=== PATIENT | female | born 1960 | race Asian ===

== ENCOUNTER 2020-01-18 19:26 | Emergency (ER) | payer MEDICAID ==
[~2020-01-18] VITALS: Ht 149.9 cm; Wt 60.0 kg
[~2020-01-18 19:26] MED LIST: AMIT10TA6 PO; ATOR40TA7 PO; CALC-159 PO; CETI-90 PO; FLUO20CA39 PO; GABA300C PO; GLYB2.5T2 PO; HYDR12.5 PO; LEVO100T PO; LORA10TA65 PO; LOSA50TA3 PO; METF-436 PO
--- NOTE | 2020-01-18 19:48 | NUR ---
PATIENT COMPLAINS OF HEADACHE, FEVER, AND CHILLS SINCE LAST WEDNESDAY. NO RECENT EXPOSURE. SLIGHT SUBJECTIVE SOB WITHOUT ACCESSARY MUSCLE USE. NO SORE THROAT, NO N/V. SEEN BY MD [facility].
--- NOTE | 2020-01-18 20:12 | NUR ---
PORTABLE CXR DONE. PATIENT MOVED TO [facility] TENT.
--- NOTE | 2020-01-18 20:30 | NUR ---
PATIENT RE-EVALUATED BY MD. DISCH TO HOME. SALINE LOCK (FIELD START DC'D, CATH INTACT.)
[2020-01-18 20:32] VITALS: BP 122/78
== END 2020-01-18 20:37 | disposition home or self-care (01) ==
LOC: ER 19:27
DX: R50.9 Fever, unspecified (principal); R51 Headache; E78.00 Pure hypercholesterolemia, unspecified; I10 Essential (primary) hypertension; Z90.710 Acquired absence of both cervix and uterus; Z56.0 Unemployment, unspecified; Z79.899 Other long term (current) drug therapy
CPT/HCPCS: 71045; 99283

== ENCOUNTER 2022-02-01 09:11 | Emergency (ER) | payer MEDICAID ==
[~2022-02-01] VITALS: Ht 149.9 cm; Wt 58.6 kg
[2022-02-01 10:31] LABS: CLARITY,URINE CLEAR (Clear); COLOR,URINE YELLOW (Yellow); GLUCOSE, URINE >=1000 mg/dl (Neg); KETONES,URINE TRACE mg/dl (Neg); LEUKOCYTE ESTERASE ,URINE NEGATIVE (Neg); NITRITES, URINE NEGATIVE (Neg); OCCULT BLOOD,URINE TRACE-INTACT (Neg); PROTEIN,URINE 30 mg/dl (Neg); UROBILINOGEN,URINE 0.2 E.U/dL (0.2-1.0)
[2022-02-01 10:32] LABS: UA COLLECTION TYPE CLN CATCH MIDSTREAM
[2022-02-01 10:42] LABS: BACTERIA,URINE FEW /HPF (Neg); MUCUS STRANDS FEW /LPF (Neg); RBC,URINE 0-2 /HPF (0-2); SQUAMOUS EPITHELIAL CELL,UR FEW /LPF (FEW)
[2022-02-01 10:43] LABS: WBC CLUMPS,URINE FEW /HPF (NEGATIVE)
[2022-02-01 10:50] LABS: BASOPHILS % (AUTO) 0.3 % (0-1); EOSINOPHILS % (AUTO) 0.3 % (0-6); HEMATOCRIT 41.5 % (35.0-45.0); HEMOGLOBIN 14.6 g/dl (12.0-16.0); LYMPHOCYTES # (AUTO) 1.1 X10'3 (1.1-4.8); LYMPHOCYTES % (AUTO) 12.9 % (21-51); MEAN CORPUSCULAR HEMOGLOBIN 30.5 PG (27.0-31.0); MEAN CORPUSCULAR HGB CONC 35.2 g/dL (33.0-36.5); MEAN CORPUSCULAR VOLUME 86.6 FL (78-98); MEAN PLATELET VOLUME 8.9 FL (7.4-10.4); MONOCYTES # (AUTO) 0.2 X10'3 (0-0.9); MONOCYTES % (AUTO) 2.6 % (2-12); NEUTROPHILS # (AUTO) 7.2 X10'3 (1.8-7.7); NEUTROPHILS % (AUTO) 83.9 % (42-75); PLATELET COUNT 181 X10'3 (140-440); RED BLOOD COUNT 4.79 X10'6 (4.20-5.60); RED CELL DISTRIBUTION WIDTH 12.4 % (11.5-14.5); WHITE BLOOD COUNT 8.6 X10'3 (4.5-11.0)
[2022-02-01] MEDS ORDERED: mag hydrox/Alum hydrox/simeth 30ml oral suspension PO ONE (10:50)
[2022-02-01] MEDS ORDERED: LIDOcaine Viscous 15ml cup MM ONE (10:50)
[2022-02-01] MEDS ORDERED: pantoprazole 40 MG vial IV SCH (10:50)
[2022-02-01] MEDS ORDERED: ondansetron/PF 4mg/2ml inj IV ONE (10:50)
[2022-02-01] MEDS ORDERED: normal saline 1000ML IV soln IVB ONE (10:50)
[2022-02-01] MEDS ORDERED: pantoprazole 40MG/NS 100ML BAG 100 ML IV ONE (10:55)
[2022-02-01 11:05] LABS: ALANINE AMINOTRANSFERASE 30 U/L (12-78); ALBUMIN/GLOBULIN RATIO 0.9 (1.1-1.5); ALKALINE PHOSPHATASE 78 IU/L (46-116); ANION GAP 11 (8-16); ASPARTATE AMINO TRANSFERASE 24 U/L (10-37); BILIRUBIN,TOTAL 0.7 MG/DL (0.1-1.0); BLOOD UREA NITROGEN 17 MG/DL (7-18); BUN/CREATININE RATIO 15.9 (6.6-38.0); CALCIUM 9.7 MG/DL (8.5-10.1); CHLORIDE 98 MMOL/L (99-107); CREATININE 1.07 MG/DL (0.40-0.90); GLUCOSE 249 MG/DL (70-104); LIPASE 179 U/L (73-393); POTASSIUM 4.4 MMOL/L (3.5-5.1); SODIUM 135 MMOL/L (135-145); TOTAL CARBON DIOXIDE 25.9 MMOL/L (24-32); TOTAL PROTEIN 8.4 G/DL (6.4-8.2); eGFR 52 ML/MIN
[2022-02-01] MEDS ORDERED: ONDA8TAB13 PO (11:56)
[2022-02-01] MEDS ORDERED: PANT-47 PO (11:56)
[2022-02-01 16:12] VITALS: BP 148/81
== END 2022-02-01 16:15 | disposition home or self-care (01) ==
LOC: ER 09:11
DX: R10.13 Epigastric pain (principal); R11.2 Nausea with vomiting, unspecified; E78.00 Pure hypercholesterolemia, unspecified; K21.9 Gastro-esophageal reflux disease without esophagitis; E11.9 Type 2 diabetes mellitus without complications; E06.9 Thyroiditis, unspecified; Z79.899 Other long term (current) drug therapy
CPT/HCPCS: 36415; 71045; 80053; 81001; 83690; 85025; 87088; 93005; 96374; 96375; 99285; C9113; J2405; J7030; 96361

== ENCOUNTER 2022-08-11 09:52 | Emergency (ER) | payer MEDICAID ==
[~2022-08-11] VITALS: Ht 149.9 cm; Wt 60.5 kg
[~2022-08-11 09:52] MED LIST changes: +ONDA8TAB13 PO; +PANT-47 PO
[2022-08-11 09:58] VITALS: BP 116/75
== END 2022-08-11 14:23 | disposition left against medical advice (07) ==
LOC: VAS 09:53
DX: R20.0 Anesthesia of skin (principal); Z53.21 Procedure and treatment not carried out due to patient leaving prior to being seen by health care provider

== ENCOUNTER 2025-07-01 21:31 | Emergency (ER) | payer MEDICAID ==
[~2025-07-01] VITALS: Ht 149.9 cm; Wt 60.1 kg
[~2025-07-01 21:31] MED LIST changes: +ATOR-411 PO; -ATOR40TA7 PO; -FLUO20CA39 PO; +FLUO20CA41 PO; +LOSA-416 PO; -LOSA50TA3 PO; +ONDA-245 PO; -ONDA8TAB13 PO
--- NOTE | 2025-07-01 21:49 | ELECTROCARDIOGRAPH REPORT ---
[facility] Test Date: 2025-07-01 Test Time: 21:48:10 Pat Name: CAROLINA PICKETT Department: EMERGENCY ROOM Room: Gender: F [employer]: KISHA : 1960 Requested By: SHAKIRA CRUZ Order Number: [id number] Reading MD: Measurements Intervals [place] Rate: 64 P: 22 WY: 159 QRS: 29 QRSD: 86 T: 58 QT: 415 QTc: 428 Interpretive Statements Sinus rhythm Low voltage, precordial leads ST elevation, consider inferior injury Please click the below link to view image of tracing.
[2025-07-01 22:09] LABS: MEAN PLATELET VOLUME 9.4 FL (7.4-10.4); RED CELL DISTRIBUTION WIDTH 12.9 % (11.5-14.5)
--- NOTE | 2025-07-01 22:26 | RADIOLOGY REPORT ---
CHEST RADIOGRAPH Indication: CP Technique: Single frontal view of the chest was obtained COMPARISON: CHEST,SINGLE VIEW on DOS: 02/01/22 FINDINGS: Lungs and pleural spaces are clear. Cardiac silhouette and trey are within normal limits. Bones and soft tissues demonstrate no significant abnormality. IMPRESSION: 1. No acute disease.
[2025-07-01 22:30] LABS: CREATININE 1.43 MG/DL (0.40-0.90); PRO BRAIN NATRIURETIC PEPTIDE < 30 PG/ML (0-125); TOTAL CARBON DIOXIDE 27.2 MMOL/L (24-32); eCRCL 27 ML/MIN; eGFR 37 ML/MIN
--- NOTE | 2025-07-02 01:21 | Physician Documentation ---
History of Present Illness General Chief Complaint: Chest Pain Stated Complaint: THROAT/BACK PAIN Time Seen by MD: 01:02 Primary Medical Doctor: [facility] History of Present Illness Initial Comments The patient is a 65-year-old female with a history of type 2 diabetes who complains of anterior chest pain over the last six days. Patient states pain is worse at night. It got she also states it is worse when she moves and if she touches her anterior chest. Patient is a states she saw her provider during the week who did an EKG on her. Patient states her pain is currently 8/10. She states it radiates into her throat.. The patient states she has a does have a history of cardiac issues in the past. Patient denies any fevers chills nausea or vomiting. Patient denies any pain when she swallows. Medication Reconciliation Allergies: Coded Allergies: No Known Allergies (Unverified , 06/27/11) Scheduled Amitriptyline Hcl (Amitriptyline Hcl), 1 TAB PO HS, (Reported) Atorvastatin Calcium (Lipitor), 1 TABLET PO HS, (Reported) Calcium Carbonate/Vitamin D3 (Calcium + Vitamin D Tablet), 1 TAB PO DAILY, (Reported) Cetirizine HCl (Zyrtec), 1 TABLET PO DAILY, (Reported) Fluoxetine Hcl* (Prozac*), 1 CAP PO QAM, (Reported) Gabapentin (Neurontin), 1 CAP PO TID, (Reported) Glyburide (Diabeta), 2.5 MG PO DAILY, (Reported) Hydrochlorothiazide (Hydrochlorothiazide), 1 CAP PO DAILY, (Reported) Levothyroxine Sodium (Synthroid), 1 TAB PO DAILY, (Reported) Loratadine (Claritin), 1 TABLET PO DAILY, (Reported) Losartan* (Cozaar*), 1 TAB PO DAILY, (Reported) Metformin Hcl (Metformin Hcl), 1 TAB PO Q12H, (Reported) Pantoprazole Sodium (PROTONIX tablet), 1 TAB PO DAILY Scheduled PRN Ondansetron 8mg ODT (Ondansetron Odt), 1 TAB PO TID PRN for nausea/vomiting Sucralfate (Sucralfate), 1 GM PO TID PRN for pain Past Medical History Past Medical History: High Cholesterol, Hypertension, GERD, Diabetes, Hypothyroidism Past Surgical History: hysterectomy Smoking: Non-Smoker Alcohol Use: None Drug Use: none Lives with: Family Lives In: Home Occupation: unemployed Review of Systems All Other Systems at this time: Reviewed and Negative Physical Exam Physical Exam Vital Signs: Temperature: 98.4, Heart Rate: 75, Respiratory Rate: 14, BP: 117/84, Pulse Oximetry: 97, Weight: 60.100 Oxygen Flow Rate: 0 Physical Exam VITALS: Reviewed and as above. GENERAL: Alert, no apparent distress. HEENT: Normocephalic, atraumatic, PERRL, EOMI, dry mucosa, no erythema RESPIRATORY: Lungs clear, normal breath sounds, no respiratory distress. CHEST: No accessory muscle use, no retractions anterior chest wall tenderness CV: Regular rate, rhythm, no edema, no murmur, No: JVD GI: Soft, non-tender, bowels sounds present, no rebound, guarding, or rigidity BACK: No CVA tenderness, or swelling MUSCULOSKELETAL: No deformities, no edema SKIN: Warm and dry, no rash NEURO: Oriented x4, No motor or sensory deficit PSYCH: Normal mood and affect, no agitation Progress Results/Orders Results/Orders Orders - SHAKIRA CRUZ MD Chest,Single View (07/01/25 21:46) Monitor (07/01/25 21:46) Saline Lock (07/01/25 21:46) Oxygen (07/01/25 21:46) Completed Orders - SHAKIRA CRUZ MD Chest,Single View (07/01/25 21:46) Cbc/Diff (07/01/25 21:46) BMP (07/01/25 21:46) PBNP (07/01/25 21:46) Electrocardiogram (07/01/25 21:46) Hs Troponin I W Calculations (07/01/25 21:46) Hs Troponin I W Calculations (07/01/25 23:46) Mag & Alum Hydrox/Simeth Susp (Maalox Or (07/02/25 01:25) Lidocaine 2% Viscous (Xylocaine 2% Visco (07/02/25 01:25) Medications Received in ER Medications (Trade) Dose Ordered Sig/Shaji Route PRN Reason Start Time Stop Time Status Last Admin Dose Admin (Maalox oral suspension) 30 ml ONCE ONCE PO 07/02/25 01:25 07/02/25 01:26 DC 07/02/25 01:38 30 ML (Xylocaine 2% Viscous 15mL cup) 15 ml ONCE ONCE MM 07/02/25 01:25 07/02/25 01:26 DC 07/02/25 01:38 15 ML Vital Signs 07/01/25 07/02/25 07/02/25 07/02/25 21:46 00:38 01:39 01:40 Temp 98.4 Pulse 62 75 78 Resp 16 14 16 16 B/P (MAP) 123/79 117/84 (95) 121/68 (85) Pulse Ox 95 97 99 O2 Flow Rate 0 0 0 07/02/25 02:33 Temp 98.6 Pulse 91 Resp 18 B/P (MAP) 118/55 Pulse Ox 99 Laboratory Tests Test 07/01/25 21:52 07/01/25 23:55 White Blood Count 6.8 Red Blood Count 4.47 Hemoglobin 13.3 Hematocrit 39.6 Mean Corpuscular Volume 88.5 Mean Corpuscular Hemoglobin 29.8 Mean Corpuscular Hemoglobin Concent 33.7 Red Cell Distribution Width 12.9 Platelet Count 177 Mean Platelet Volume 9.4 Neutrophils (%) (Auto) 60.5 Lymphocytes (%) (Auto) 28.6 Monocytes (%) (Auto) 7.1 Eosinophils (%) (Auto) 3.4 Basophils (%) (Auto) 0.4 Neutrophils # (Auto) 4.1 Lymphocytes # (Auto) 1.9 Monocytes # (Auto) 0.5 Eosinophils # (Auto) 0.2 Basophils # (Auto) 0.0 CBC Comment Sodium Level 136 Potassium Level 3.9 Chloride Level 100 Carbon Dioxide Level 27.2 Anion Gap 9 Blood Urea Nitrogen 24 H Creatinine 1.43 H Estimated GFR/1.73 m2 37 BUN/Creatinine Ratio 16.8 Glucose Level 130 H Calcium Level 9.0 Troponin I High Sensitivity 5 4 Pro-B-Type Natriuretic Peptide < 30 Albumin 3.6 Chemistry Comments Troponin I High Sens Percent Delta 20 Troponin I Hi Sens Absolute Change -1 EKG/XRAY/CT/US/VASC/MRI Chest X-Ray : Additional Comments Patient: CAROLINA PICKETT Medical Record: [id number] [facility] : 1960, Age: 65 Sex: Female Location: ER Patient Status: [facility] ER Service Date/Time: 07/01/252145 Ordering Physician: SHAKIRA CRUZ MD Exam: CHEST,SINGLE VIEW CHEST RADIOGRAPH Indication: CP Technique: Single frontal view of the chest was obtained COMPARISON: CHEST,SINGLE VIEW on DOS: 02/01/22 FINDINGS: Lungs and pleural spaces are clear. Cardiac silhouette and trey are within normal limits. Bones and soft tissues demonstrate no significant abnormality. IMPRESSION: 1. No acute disease. Electronically Signed by:LEE VALDES MD Date & Time: 07/01/252223 Dictated by: LEE VALDES MD Dictation date and time: 07/01/252205 Primary Care Provider: NO PRIMARY CARE PROVIDER cc: SHAKIRA CRUZ MD ~ Medical Decision Making Findings The patient's EKG was interpreted by me the has a sinus rhythm rate of 64 with a normal axis and nonspecific ST-T abnormalities no ST elevation or ST depression was appreciated. Time of the interpretation was 2147 Departure Disposition: HOME / SELF CARE / HOMELESS Impression: Primary Impression: Chest pain Qualified Codes: R07.9 - Chest pain, unspecified Additional Impression: GERD (gastroesophageal reflux disease) Qualified Codes: K21.9 - Gastro-esophageal reflux disease without esophagitis Discharge Instructions: Nonspecific Chest Pain, Adult Referrals: NO PRIMARY CARE PROVIDER (PCP) Prescriptions Sucralfate (Sucralfate) 1 Gram Tablet 1 GM PO TID PRN for pain, #30 TABLET Prov: SHAKIRA CRUZ MD 07/02/25 SHAKIRA CRUZ MD Jul 02, 2025 01:21
[2025-07-02] MEDS: LIDOcaine 2% Viscous 15ml cup MM ONE (01:38)
[2025-07-02] MEDS: mag hydrox/Alum hydrox/simeth 30ml oral suspension PO ONE (01:38)
[2025-07-02] MEDS ORDERED: SUCR1TAB PO (02:26)
[2025-07-02 02:33] VITALS: BP 118/55; PULSE 91; RESP 18; TEMP 98.6; O2SAT 99
== END 2025-07-02 02:34 | disposition home or self-care (01) ==
LOC: ER 21:32
DX: R07.9 Chest pain, unspecified (principal); K21.9 Gastro-esophageal reflux disease without esophagitis; I10 Essential (primary) hypertension; E78.00 Pure hypercholesterolemia, unspecified; E11.9 Type 2 diabetes mellitus without complications; E03.9 Hypothyroidism, unspecified; Z90.710 Acquired absence of both cervix and uterus; Z79.899 Other long term (current) drug therapy; Z56.0 Unemployment, unspecified
CPT/HCPCS: 36415; 71045; 80048; 83880; 84484; 85025; 93005; 99285